=== PATIENT | female | born 1965 | race Caucasian/White ===

== ENCOUNTER 2024-05-03 13:41 | Emergency (ER) | payer OTHER, SELFPAY ==
[2024-05-03 14:17] VITALS: BP 148/85
[2024-05-03 14:32] LABS: % Basophils 0.4 % (0-2); % Eosinophils 2.6 % (0-6); % Immature Granulocytes 0.4 % (0-0.5); % Lymphocytes 17.8 % (20.5-51.1); % Monocytes 6.3 % (1.7-9.3); % Neutrophils 72.5 % (42.2-75.2); Absolute Eosinophils 0.2 10^3/uL (0-0.7); Absolute Lymphocytes 1.6 10^3/uL (1.2-3.4); Absolute Monocytes 0.6 10^3/uL (0.1-0.6); Absolute Neutrophils 6.7 10^3/uL (1.4-6.5); Hematocrit 39.2 % (37.0-47.0); Hemoglobin 13.4 g/dL (12.0-16.0); Mean Corp Hgb Conc. 34.2 g/dL (33.0-37.0); Mean Corpuscular Hgb 30.6 pg (27.0-31.0); Mean Corpuscular Volume 89.5 fL (81.0-99.0); Mean Platelet Volume 8.8 fL (7.4-10.4); Nucleated Red Blood Cells % 0 %; Platelet Count 286 10^3/uL (130-400); Red Blood Cell Count 4.38 10^6/uL (4.20-5.40); Red Cell Dist. Width 12.7 % (11.5-14.5); White Blood Cell Count 9.2 10^3/uL (4.8-10.8)
[2024-05-03 14:55] LABS: ALT (SGPT) 18 U/L (0-35); AST (SGOT) 25 U/L (14-36); Albumin 4.7 g/dl (3.5-5.0); Alkaline Phosphatase 66 U/L (38-126); Blood Urea Nitrogen 15 mg/dl (7-17); Calcium 9.9 mg/dl (8.4-10.2); Carbon Dioxide 26 mmol/L (22-30); Glucose 122 mg/dl (70-99); Total Bilirubin 0.8 mg/dl (0.2-1.3); Total Protein 6.9 g/dl (6.3-8.2); eGFR > 60.00
[2024-05-03 15:34] LABS: TSH Reflex To Free T4 3.43 uIU/ml (0.47-4.68)
[2024-05-03 15:48] LABS: Chloride 107 mmol/L (98-107); Potassium 3.8 mmol/L (3.5-5.1); Sodium 144 mmol/L (135-145)
[2024-05-03 16:15] VITALS: BMI 27.5
--- NOTE | 2024-05-03 17:06 | ED.GENMED ---
History of Present Illness
General
Chief Complaint: Dizziness
Source: patient
Exam Limitations: none
Time Seen by Provider: 05/03/24 17:00
Nursing documentation reviewed up to this point in time: agreed with
History of Present Illness
History of Present Illness:
67-year-old female with past history of asthma presenting to the emergency department today with concerns of intermittent lightheadedness and feeling 'off' no room spinning dizziness . Intermittently over the past few months patient claims that she
does have a history of thyroid disease and she decreased her thyroid medication to see if would help with her dizziness and her blood pressure.
Past History
Past History
ED Past Medical History: Asthma and Other (Seasonal )
ED Past Surgical History: Negative Appendectomy, Bowel resection or Cardiac
Social History
Tobacco: Non-smoker
Alcohol: Occasional
Drug: None
Personal: Other
Living: with family
Employment: Employed
Family History
Family History: Hypertension; Negative Early CAD
Review of Systems
Review of Systems
Allergies reviewed?: Yes
All Other Systems: ROS reviewed and negative except as documented in HPI and ROS
Phy Exam
Physical Exam
Physical Exam:
GENERAL: Alert , in no apparent distress
EYE: pupils equal and reactive
NECK: Supple, no significant adenopathy.
ENT: o/p clr, mmm.
CARDIAC: Regular rate and rhythm .
LUNGS: Clear breath sounds bilaterally, no acute respiratory distress, no wheezes/rales/rhonchi
ABDOMEN: Soft, without focal tenderness, no r/g, no cvat
NEUROLOGICAL: Alert and oriented, no focal neuro deficits
SKIN: Warm and dry, skin intact.
MUSCULOSKELETAL: No edema, well perfused.
PSYCH: Normal and appropriate interaction.
Course
Orders/Labs/Results
Orders:
Orders
05/03/24 14:25
Complete Blood Count/With Diff Urgent
Comprehensive Metabolic Panel Urgent
TSH Reflex To Free T4 Urgent
05/03/24 17:18
EKG [Electrocardiogram (*1)] Urgent
Reason for Study: Fatigue / Weakness
EKG- Treatment ONCE
Abnormal Lab Results
05/03/24
14:25
Absolute Neuts (auto) 6.7 H 10^3/uL
(1.4-6.5)
Lymphocytes % 17.8 L %
(20.5-51.1)
Glucose 122 H mg/dl
(70-99)
05/03/24 14:25
05/03/24 14:25
Vital Signs
Initial and Last Documented VS:
Initial Vital Signs
Temp Pulse Resp BP Pulse Ox
98.9 F 91 16 148/85 98
05/03/24 14:17 05/03/24 14:17 05/03/24 14:17 05/03/24 14:17 05/03/24 14:17
Last Documented Vital Signs
Temp Pulse Resp BP Pulse Ox
98.9 F 82 17 148/85 98
05/03/24 14:17 05/03/24 16:15 05/03/24 16:15 05/03/24 14:17 05/03/24 16:15
MDM/Problems Addressed
MDM/Problems Addressed:
59-year-old female presenting to the emergency department today with concerns of feeling 'off' over the past few months. Denies specific chest pain shortness of breath nausea vomiting. Here blood pressure slightly elevated otherwise vital signs
are normal. Labs unremarkable TSH normal range. EKG normal. Patient with no obvious emergent findings stable for outpatient follow-up return precautions given.
*Critical Care Note
Total Time (30-74mins, 75-104mins- exclusive of procedures): Not Applicable
ED Attending Note
-
Portions of this chart may have been created with voice recognition software.� Occasional wrong word or��sound alike� substitutions may have occurred due to the inherent limitations of voice recognition software.
Discharge Plan
Departure
Patient Disposition: Home (Routine Discharge)
Date of Disposition: 05/03/24
Time of Disposition: 17:56
Patient with high blood pressure during this ER visit?: No
Condition: Good
Covid-19: Not Applicable
Discharge Problem:
Dizziness
Instructions: Dizziness, Nonvertigo, (DC)
Prescriptions:
No Action
meclizine 25 MG tablet
25 mg PO Q8HPRN PRN (Reason: nausea or vertigo) Qty: 20 0RF
cetirizine [Zyrtec] 10 MG capsule
10 mg PO DAILY Qty: 30 0RF
fluticasone propion-salmeterol 100 MCG/50 MCG blister with device
1 puff inhalation
amoxicillin-pot clavulanate 1 TABLET tablet
1 tab PO Q12 Qty: 20 0RF
Referrals:
Triston Evangelista MD [Family Provider] -
Activity Restrictions/Additional Instructions:
You came to the emergency department today with concerns of multiple symptoms. Here your emergent workup was reassuring. It is important that you follow-up closely as an outpatient. Return to the emergency department for any worsening, new or
concerning symptoms
Interventions
Interventions:
*Risk Screen - Suicide Last Done: 05/03/24 16:15
*General Assessment Last Done: 05/03/24 16:15
*Neglect/Abuse Screening Last Done: 05/03/24 16:15
*ED COVID-19 Vaccine History Last Done: 05/03/24 16:15
ED- Neurological Assessment Last Done: 05/03/24 17:43
ED Swallowing Screen Last Done: 05/03/24 17:43
Discharge Date and Time
Print Language: MALAY
== END 2024-05-03 18:14 | disposition home or self-care (01) ==
LOC: EMR 13:41
PROVIDERS: EMERGENCY PHYSICIAN Emergency Medicine; FAMILY PHYSICIAN Family Medicine
DX: R42 Dizziness and giddiness (principal); J45.909 Unspecified asthma, uncomplicated
CPT/HCPCS: 99284; 80053; 84443; 85025; 93005

== ENCOUNTER 2024-05-21 14:04 | Outpatient (RCR) | payer OTHER, SELFPAY | END 2024-05-21 15:12 | disposition home or self-care (01) | LOC: RPT 14:04 | PROVIDERS: FAMILY PHYSICIAN Family Medicine | DX: M17.11 Unilateral primary osteoarthritis, right knee (principal); Z73.6 Limitation of activities due to disability; R26.89 Other abnormalities of gait and mobility | CPT/HCPCS: 97110; 97162 ==